=== PATIENT | male | born 1955 | race Caucasian/White ===

== ENCOUNTER → 2017-01-13 | Outpatient (CLI) | payer MEDICARE, BC | LOC: COL.RAD 11:19 | DX: M19.011 Primary osteoarthritis, right shoulder (principal); Z98.890 Other specified postprocedural states ==

== ENCOUNTER 2017-03-30 08:39 | Inpatient (IN) | payer MEDICARE, BC ==
[~2017-03-30] VITALS: Ht 177.8 cm; Wt 94.8 kg
[2017-05-27] VITALS (10 sets, daily range): BP systolic 98–133; BP diastolic 54–77; PULSE 69–93; TEMP 97.7–98.8
[2017-05-27] MEDS ORDERED: MULTIPLE VITAMI1 CAP PO (10:01)
[2017-05-27] MEDS ORDERED: ULTRAM 50MG TAB50 MG PO (10:03)
[2017-05-27] MEDS ORDERED: FLEXERIL 1010 MG/TAB PO (10:03)
[2017-05-27] MEDS ORDERED: NORCO 325 MG-7.1 TAB PO (10:04)
[2017-05-28 04:00] VITALS: BP 113/71; PULSE 75; TEMP 97.9
[2017-05-28 07:51] VITALS: BP 112/60; PULSE 65; TEMP 97.4
[2017-05-28 12:25] VITALS: BP 153/76; PULSE 80; TEMP 98.6
== END 2017-05-28 13:13 | disposition home or self-care (01) | DRG 483 ==
LOC: JCC 05-27 07:30
PROVIDERS: Orthopaedic Surgery
PROC: 0RRJ00Z Replacement of Right Shoulder Joint with Reverse Ball and Socket Synthetic Substitute, Open Approach (ICD-10-PCS; principal; 2017-05-27 12:30)
DX: M19.211 Secondary osteoarthritis, right shoulder (principal); Z87.891 Personal history of nicotine dependence
CPT/HCPCS: A4314; A4315; C1713; C1776; J0690; J2250; J2370; J2704; J2795; J3010; J7050

== ENCOUNTER → 2017-05-20 | Outpatient (CLI) | payer MEDICARE, BC ==
[2017-05-20 16:09] LABS: HIV 1/2 Antibodies Non-Reactive; HIV-1p24 Antigen Non-Reactive
== END ==
LOC: COL.LAB 15:03
PROVIDERS: Orthopaedic Surgery
DX: Z01.818 Encounter for other preprocedural examination (principal); M19.011 Primary osteoarthritis, right shoulder

== ENCOUNTER 2021-02-10 16:10 | Emergency (ER) | payer MEDICARE, BC ==
[~2021-02-10] VITALS: Ht 172.7 cm; Wt 90.9 kg
[~2021-02-10 16:10] MED LIST: FLEXERIL 1010 MG/TAB PO; MULTIPLE VITAMI1 CAP PO; NORCO 325 MG-7.1 TAB PO; ULTRAM 50MG TAB50 MG PO
[2021-02-10 16:12] VITALS: TEMP 98.1
[2021-02-10 16:29] LABS: BASO # 0.1 (0.0-0.2); BASO % 0.6 % (0.0-2.0); EOS # 0.4 (0.0-0.7); EOS % 3.4 % (0-4.0); GRAN # 9.1 (1.4-6.5); GRAN % 73.3 % (42.2-75.2); HEMATOCRIT 43.3 % (42.0-52.0); HEMOGLOBIN 14.7 g/dl (13.5-18.0); LYMPH # 1.8 (1.2-3.4); LYMPH % 14.8 % (20.0-51.0); MEAN CELL VOLUME 92 fl (80.0-100.0); MEAN CORPUSCULAR HEMOGLOBIN 31 pg (27.0-31.0); MEAN CORPUSCULAR HGB CONC 34 g/dl (33.0-37.0); MEAN PLATELET VOLUME 11.1 fl (7.4-10.4); MONO % 7.6 % (1.7-9.3); PLATELET COUNT 308 K/mm3 (130-400); REDCELL DISTRIBUTION WIDTH-CV 12.6 % (11.5-14.5)
[2021-02-10 16:49] LABS: ALBUMIN 3.6 gm/dL (3.4-4.8); BILIRUBIN,TOTAL 0.3 mg/dL (0.2-1.2); CALCIUM 9.3 mg/dL (8.4-10.2); POTASSIUM 3.9 mmol/L (3.5-4.5); TOTAL PROTEIN 6.8 gm/dL (6.2-8.1)
[2021-02-10 16:50] VITALS: BP 160/87; PULSE 90
== END 2021-02-10 16:50 | disposition short-term general hospital (02) ==
LOC: COL.ER 16:10
PROVIDERS: Emergency Medicine
DX: S11.93XA Puncture wound without foreign body of unspecified part of neck, initial encounter (principal); S41.031A Puncture wound without foreign body of right shoulder, initial encounter; W33.01XA Accidental discharge of shotgun, initial encounter
CPT/HCPCS: J7030